=== PATIENT | female | born 1965 | race American Indian/Alaskan Native ===

== ENCOUNTER 2018-02-08 05:55 | Observation (INO) | payer OTHER ==
--- NOTE | 2018-02-07 17:45 | History and Physical Report ---
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 of genital herpes: yes Hx of STD: HSV Active Medications (reviewed today): OXYCODONE-ACETAMINOPHEN 5-325 MG ORAL TABLET (OXYCODONE-ACETAMINOPHEN) 1-2po q6h LEVOTHYROXINE SODIUM 175 MCG ORAL TABLET (LEVOTHYROXINE SODIUM) XARELTO TABLET (RIVAROXABAN TABS) BENADRYL CAPSULE (DIPHENHYDRAMINE HCL CAPS) Current Allergies (reviewed today): No known allergies Past Medical History: Reviewed history from 12/15/2017 and no changes required: Blood Transfusions:2006 post op DVT hand(L) contusion Breast Cancer (DCIS 08/11/2016) Hypothyroidism Past Surgical History: Reviewed history from 12/15/2017 and no changes required: Breast Biopsy:(B) benign D&C: Hysteroscopy: Myomectomy:2005 [facility] 2008 Mastectomy(B) 10/2016 Reconstruction(02/2017) with complications( DVT on lovenox and L breast hematoma) thyroidectomy (2018) Family History Summary: Reviewed history Last on 02/27/2015 and no changes required:02/07/2018 Other family member - Has No Family History of Biliary Tract Cancer - Entered On : 03/04/2016 Other family member - Has No Family History of Breast Cancer - Entered On: 2015 Other family member - Has No Family History of Brain Cancer - Entered On: 2015 Other family member - Has No Family History of DVT/PE on OCP - Entered On: 2015 Other family member - Has No Family History of Kidney/Urinary Tract Cancer - Entered On: 03/04/2016 Other family member - Has No Family History of Ovarvian Cancer - Entered On: 08/2016 Other family member - Has No Family History of Pancreatic Cancer - Entered On: Other family member - Has No Family History of Stomach Cancer - Entered On: 03/04 Other family member - Has No Family History of Small Bowel Cancer - Entered On: 03/04/2016 Other family member - Has No Family History of Uterine Cancer - Entered On: 03/04 Father (biol.) - Has Family History of Prostate Cancer - Entered On: 11/23/2016 Cousin (female) - Has Family History Breast Cancer - paternal - Entered On: 09/26 General Comments - FH: No Family History of Colon Cancer No Family History of Ovarian Cancer Family History of Hypertension sister and mother Social History: Reviewed history from 08/26/2017 and no changes required: has a friend is active Patient is Smoking History: Patient has never smoked. Risk Factors: Mammogram History: Date of Last Mammogram: 02/02/2018 Results: 10/2014 Previous Tobacco Use: Signed On 10/13/2017 Smoked Tobacco Use: Never smoker Smokeless Tobacco Use: Never Passive smoke exposure: no Drug use: no HIV high-risk behavior: no Previous Alcohol Use: Signed On - 10/13/2017 Alcohol use: yes Type: occ Drinks per day: social Exercise: yes Times per week: 5 times per week Type of Exercise: cardio Seatbelt use: 100 % Colonoscopy History: Date of Last Colonoscopy: 10/01/2016 PAP Smear History: Date of Last PAP Smear: 04/29/2011 Mammogram History: Date of Last Mammogram: 02/02/2018 Results: 10/2014 Review of Systems General Denies fever, chills, sweats, anorexia, fatigue, weakness, malaise, weight loss and sleep disorder. Complains of pelvic pain. Denies vaginal discharge, incontinence, dysuria, hematuria, urinary frequency, amenorrhea, menorrhagia, abnormal vaginal bleeding, genital sores, decreased libido, painful periods, painful sex, urinary urgency, hot flashes, vaginal dryness, vaginal itching and vaginal odor. CV Denies chest pains, palpitations, syncope, dyspnea on exertion, orthopnea, PND and peripheral edema. Resp Denies cough, dyspnea at rest, excessive sputum, hemoptysis, wheezing and pleurisy. GI Denies nausea, vomiting, diarrhea, constipation, change in bowel habits, abdominal pain, melena, hematochezia, jaundice, gas/bloating, indigestion/ heartburn, dysphagia and odynophagia. Endo Denies cold intolerance, heat intolerance, polydipsia, polyphagia, polyuria and unusual weight change. Breast Denies left breast lump, right breast lump, nipple discharge, bloody discharge from nipple, breast pain, abnormal mammogram and breast enlargement. MS Denies back pain, joint pain, joint swelling, muscle cramps, muscle weakness, stiffness, arthritis, sciatica, restless legs, leg pain at night and leg pain with exertion. Derm Denies rash, itching, dryness and suspicious lesions. Neuro Denies paralysis, paresthesias, headache, seizures, tremors, vertigo, transient blindness, frequent falls, frequent headaches and difficulty walking. Psych Denies depression, anxiety, irritability and mood swings. Eyes Denies blurring, diplopia, irritation, discharge, vision loss, eye pain and photophobia. ENT Denies earache, ear discharge, tinnitus, decreased hearing, nasal congestion, nosebleeds, sore throat and hoarseness. Allergy Denies urticaria, allergic rash, hay fever and recurrent infections. Heme Denies abnormal bruising, bleeding and enlarged lymph nodes. Physical Exam Appearance: well developed, well nourished, no acute distress Other Exams Lungs: no rales, rhonchi, or wheezes Heart: S1, S2, no murmur, rub, or gallop Abdomen: soft, non-tender, no masses, Genitourinary Exam Vulva: normal, no lesions or discharge Urethral meatus: normal size and location, no lesions or discharge Urethra: no discharge Bladder: no cystocele Vagina: normal appearance, no discharge, lesions. No evidence of cystocele or rectocele. 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 She desires to proceed with BSO and other indicated procedures . Consent reviewed and signed . Possible laparoscopy or laparotomy explained to patient. The risks and alternatives for this surgery were reviewed with the patient. She was informed of possible bleeding, infection, injury to bowel, bladder, ureters or other adjacent organs. The patient was instructed/informed the following: The normal length of hospital stay for this procedure. Nothing to eat or drink after midnight the evening prior to surgery. Clear liquids the day before surgery. Fleets enema the day prior to surgery. Pre-op instruction sheets given. Wound care instructions given. Infection precautions reviewed, patient to call for any signs or symptoms of infection. The usual discomforts associated with this procedure were detailed. Proper use of pain medicines was reviewed. Patient was given ample opportunity to have all her questions answered before signing informed consent. Problem # 2: Pelvic and perineal pain (ICD-789.00) (IKJ77-Q03.2) It was extensively explained to her that her pain may persist, recur or change in nature due to the difficulty with diagnosis chronic pelvic pain or development of adhesions. She declined other treatment options at this time. Problem # 3: DEEP VENOUS THROMBOPHLEBITIS, LEG, LEFT (ICD-453.40) (ICD10- I82.402) Patient states she only requires Xarelto after the procedure. No bridge is required. Medications Added to Medication List This Visit: 1) Oxycodone-acetaminophen 5-325 Mg Oral Tablet (Oxycodone-acetaminophen) .... 1-2po q6h 2) Levothyroxine Sodium 175 Mcg Oral Tablet (Levothyroxine sodium) Prescriptions: OXYCODONE-ACETAMINOPHEN 5-325 MG ORAL TABLET (OXYCODONE-ACETAMINOPHEN) 1-2po q6h #30 Tablet x 0 Entered and Authorized by: Janiya Salas MD Method used: Print then Give to Patient RxID: [id number] Medications and Allergies Allergies Allergy/AdvReac Type Severity Reaction Status Date / Time No Known Allergies Allergy Unverified 02/07/18 16:37 Home Medications Medication Instructions Recorded Confirmed Last Taken Type Levothyroxine [Synthroid] 150 mcg PO QAM 02/07/18 02/07/18 Unknown History Rivaroxaban [Xarelto] 20 mg PO PRN PRN 02/07/18 02/07/18 Unknown History diphenhydrAMINE [Benadryl CAP] 25 mg PO Q8HR PRN 02/07/18 02/07/18 Unknown History Active Meds: Active Medications Cefazolin Sodium (Ancef/Sterile Water 2 Gm/20 Ml) 2 gm in 20 mls @ 80 mls/hr IV PREOP NR; Protocol Assessment and Plan - Patient Problems (1) Pelvic pain Status: Chronic (2) Pelvic mass in female Status: Chronic
[2018-02-08] MEDS ORDERED: ANCEF/STERILE WATER 2 GM/20 ML 2 GM/20 ML SYRINGE IV NR (06:00)
[2018-02-08] MEDS ORDERED: NACL BACTERIOSTATIC INFILTRATI ONE (06:36)
[2018-02-08] MEDS ORDERED: ZOFRAN IV PRN ×2 (07:05→13:10)
[2018-02-08 07:11] LABS: INR 0.97 (0.87-1.13)
[2018-02-08 07:12] LABS: Partial Thromboplastin Time 27.1 Sec. (24.2-36.6)
--- NOTE | 2018-02-08 07:15 | Anesthesia Consultation ---
Anesthesia Consult and Med Hx Date of service: 02/08/18 - Airway Anesthetic Teeth Evaluation: Good ROM Head & Neck: Adequate Mental/Hyoid Distance: Adequate Mallampati Class: Class II Intubation Access Assessment: Good - Pulmonary Exam CTA: Yes - Cardiac Exam Cardiac Exam: RRR - Pre-Operative Health Status ASA Pre-Surgery Classification: ASA3 Proposed Anesthetic Plan: General - Pre-Anesthesia Comment Pre-Anesthesia Comments: 52y with h/o HTN, DVT associated with prior surgery on Xarelto (stopped 2 wks ago), breast CA s/p mastectomy (no chemoradiation), thyroidectomy on Synthroid, who presents for robotic oophorectomy. Recent ED visit to [place] for foot pain (01/23/18)-. neg LE dopplers. WBC 7, hgb 13.4, plt 217. Na 137, K 3.6, Cl 105, Co2 26, BUN 22, Cr 0.97, BG 92. Discharged with suspicion that foot pain related to prior surgeries/injury - Pulmonary Hx Smoking: No Hx Asthma: No SOB: No COPD: No - Cardiovascular System Hx Hypertension: Yes Hx Coronary Artery Disease: No Hx Angina: No - Central Nervous System Hx Seizures: No CVA: No Hx Psychiatric Problems: No - Gastrointestinal Hx Gastroesophageal Reflux Disease: No - Endocrine Hx Renal Disease: No Hx Insulin Dependent Diabetes: No Hx Non-Insulin Dependent Diabetes: No Hx Thyroid Disease: Yes Hx Hypothyroidism: Yes (s/p thyroidectomy) - Other Systems Hx Alcohol Use: Yes (occas) Hx Cancer: Yes (Breast) - Additional Comments Anesthesia Medical History Comments: No prev anes comlpications
--- NOTE | 2018-02-08 07:17 | Anesthesia Day of Surgery ---
Anesthesia Day of Surgery - Day of Surgery Patient Examined: Yes Patient H&P Reviewed: Yes Patient is NPO: Yes Beta Blockers: No Cardiac Clearance: Yes Pulmonary Clearance: Yes Baltazar's Test: N/A
[2018-02-08] MEDS ORDERED: DIPRIVAN 10 MG/ML IV ONE (07:37)
[2018-02-08] MEDS ORDERED: DILAUDID ONE ×2 (07:38→12:03)
[2018-02-08] MEDS ORDERED: ZEMURON IV ONE (07:38)
[2018-02-08] MEDS ORDERED: XYLOCAINE MPF 2% ONE (07:38)
[2018-02-08] MEDS ORDERED: VERSED IV NR (08:00)
[2018-02-08] MEDS ORDERED: LACTATED RINGERS 1,000 ML IV SCH (08:00)
[2018-02-08] MEDS ORDERED: MARCAINE 0.5% 30 ML INFILTRATI ONE (08:19)
[2018-02-08] MEDS ORDERED: ROBINUL ONE (08:40)
[2018-02-08] MEDS ORDERED: ZOFRAN ONE (09:32)
--- NOTE | 2018-02-08 09:35 | Anesthesia Day of Surgery ---
Anesthesia Day of Surgery - Day of Surgery Patient Examined: Yes Patient H&P Reviewed: Yes Patient is NPO: Yes
[2018-02-08] MEDS ORDERED: LACTATED RINGERS 1,000 ML ONE ×2 (09:40→12:24)
[2018-02-08] MEDS ORDERED: NEO SYNEPHRINE/NS Syringe(OR USE) IV ONE (09:53)
[2018-02-08] MEDS ORDERED: KENALOG-40 ONE (10:45)
[2018-02-08] MEDS ORDERED: MARCAINE 0.5% INFILTRATI ONE (11:01)
[2018-02-08] MEDS ORDERED: KENALOG-40 IM ONE (11:01)
[2018-02-08] MEDS ORDERED: NACL 0.9% IR ONE (11:01)
[2018-02-08] MEDS: DILAUDID IV PRN ×4 (11:38→12:13)
--- NOTE | 2018-02-08 11:52 | Post Operative Note ---
Pre-op diagnosis: pelvic pain, pelvic mass Post-op diagnosis: same Procedure: robot assisted lsc (B) oophorectomy with removal of cystic pelvic mass Anesthesia: VELMA Surgeon: ELEANOR RENEE Garment Supervisor: DUKE COPELAND Estimated blood loss: minimal Condition: stable Disposition: PACU
--- NOTE | 2018-02-08 12:14 | Post Anesthesia Evaluation ---
- Post Anesthesia Evaluation Patient Participated: Yes Airway Patent: Yes Stable Respiratory Function: Yes Nausea/Vomiting: No Temp > 96.8F: Yes Pain Manageable: Yes Adequeate Hydration: Yes Anesthesia Complications: No
[2018-02-08] MEDS ORDERED: TYLENOL PO PRN (13:10)
[2018-02-08] MEDS ORDERED: ANCEF/NS 1 GM/50 ML 1 GM/50 ML BAG IV SCH (13:10)
[2018-02-08] MEDS ORDERED: NACL 0.9% 1000 ML 1,000 ML IV SCH (13:10)
[2018-02-08] MEDS ORDERED: REGLAN PO PRN (13:10)
[2018-02-08] MEDS ORDERED: TYLENOL PR PRN (13:10)
[2018-02-08] MEDS ORDERED: NARCAN 0.4 MG/1 ML IV PRN (13:10)
[2018-02-08] MEDS ORDERED: PERCOCET 5/325 PO PRN (13:10)
[2018-02-08] MEDS: REGLAN IV PRN ×2 (15:27→21:55)
[2018-02-08] MEDS: MORPHINE IV PRN (15:50)
--- NOTE | 2018-02-08 16:31 | Operative Report ---
Operative Report Operative Report: Date: 02/08/2018 Preoperative diagnosis: 1. Pelvic pain 2. Large cystic pelvic mass 3. History of breast cancer 4. History of postoperative deep venous thrombosis 5. Hypothyroidism Postoperative diagnosis: 1. Pelvic pain 2. Large cystic pelvic mass 3. History of breast cancer 4. History of postoperative deep venous thrombosis 5. Hypothyroidism 6. Extensive pelvic adhesions Procedure: 1. Robotic-assisted laparoscopic bilateral oophorectomy 2. Excision of right cystic pelvic mass, probable benign hydrosalpinx 3. Lysis of adhesions Surgeon: Janiya Salas MD Remediation Technician: Ana Luisa Vazquez M.D. Anesthesiologist: Sandy Park M.D. Anesthesia: Gen. endotracheal anesthesia EBL: Minimal Findings: Grossly normal left ovary. No left fallopian tube was identified. Right cystic pelvic mass encompassing the right ovary. Extensive abdominal pelvic adhesions. No obvious evidence of a malignant process. Procedure: Patient was taken to the OR and placed in the supine position. General anesthesia was induced and an oral gastric tube was placed. Her neck and head were placed on foam support. Foam eye protection with goggles were secured in place. Then foam face protection was placed and secured. Foam shoulder pads were then positioned on her shoulders for Trendelenburg positioning. She was then placed in dorsolithotomy position. Exam under anesthesia unremarkable. The abdomen and vagina were then prepped and draped in the usual sterile fashion. Timeout was performed. A Park catheter was inserted into the bladder with drainage of clear yellow urine. Sponge stick was introduced into the vagina. Sterile gloves were placed attention was turned to the abdomen. A 10 mm vertical supraumbilical incision was made approximately 8cm superior to the umbilicus. A 12 mm trocar with the laparoscope and camera attached was introduced through this incision under direct visualization. The abdomen was insufflated. No obvious bowel, bladder, ureteral, or major vascular injury was noted. The patient was then placed in steep Trendelenburg position and the following trochars were placed under direct visualization: 8 mm robotic trochars were placed through incisions made in the bilateral midclavicular lower abdominal region approximately 10 cm lateral and approximately 2 cm below the midline incision, and a 10mm trocar was placed through an incision made in the right lower lateral pelvis approximately 2 cm superior to the iliac crest. The 10 mm laparoscope was then replaced by a 5 mm laparoscope that was placed through the 5 millimeter lateral trocar. The 12 mm trocar was then removed in the James Jackson fascial closure device was placed through the incision and a 0 Vicryl was placed through the fascia. Once the suture was secured the 12 mm trocar was reintroduced. The same procedure was performed for the right lower quadrant incision. Using the Endo Zach and 30 W of energy the omentum that was adhered to the anterior abdominal wall was released. These adhesions extended down into the pelvis we are a candidate for released from the anterior wall and the vaginal cuff. Once anatomy was restored and the trochars were in the appropriate positions, the Netsket Roddy robot system was engaged. The EndoShears and bipolar device were placed through the 8 mm trochars and positioned then attention was turned to the console. No bowel, bladder, ureteral, or major vessel injury was noted. The right adnexal structure was elevated infundibular pelvic ligament was clamped cauterized and incised. With careful dissection the cystic structure was released away from the pelvic sidewall. The course of the ureter did not appear to be involved with dissection. Attention was then turned to the to the left adnexa. Grossly normal left ovary was elevated away from the pelvic sidewall to ensure no injury to the ureter. Then the infundibulopelvic ligament was clamped, cauterized and incised and released. Again the ureter did not appear involved with the dissection. The left ovary was then placed in an Endo Catch bag and removed through the right lower quadrant incision. The trocar was reintroduced. Then the cystic structure was placed in a different Endo Catch bag and then approximately 100 mL's of clear fluid was aspirated. The bagwas then closed and the structure was removed through the right lower quadrant incision. The trocar was again reintroduced to the right lower quadrant incision. Pelvis was irrigated with warm saline. Then attention was turned to the pelvic sidewall. Hemostasis was noted. Surgicel was applied to the pelvic side butcher and vaginal cuff. Grossly normal appendix was noted. Once hemostasis was confirmed and no obvious injuries were visualized procedure was ended. The robot was disengaged. The patient was taken out of Trendelenburg position. The 10 mm trochars were removed and the fascia was ligated. The abdomen was then desufflated. The skin incisions were reapproximated using 0 Vicryl in a subcuticular manner. There within infused with 3 mL's of Kenalog 40 mg. Also the incisions were infused with 20 mL of Marcaine 0.5% without epinephrine. Hemostasis was noted. She was noted to have clear yellow urine draining into her Park catheter that was removed at the end of the procedure. At this point the procedure was ended Counts were correct 3 patient tolerated procedure well was taken to recovery in stable condition
[2018-02-08] MEDS: ceFAZolin 1 GM in NACL 0.9% 20 ML IV SCH ×2 (16:40→23:05)
[2018-02-08] MEDS ORDERED: DILAUDID PO PRN (17:41)
--- NOTE | 2018-02-08 17:55 | Event Note ---
Date: 02/08/18 Patient resting in bed, feels a little nausea and groggy. States she cannot tolerated Percocet and requests PO Dilaudid. Her sister is present at the bed side. Patient states she's already voided w/o difficulty. Operative findings and procedure explained, questions answered. Will observe over night d/t extensive dissection performed and her complicated history. Patient voiced understanding and agrees with plan of care.
[2018-02-08 19:16] LABS: BUN/Creatinine Ratio TNR; Blood Urea Nitrogen TNR mg/dL (7-17)
[2018-02-08 19:17] LABS: Calcium TNR mg/dL (8.4-10.2); Hemolysis Index TNR
[2018-02-08 20:35] LABS: BUN/Creatinine Ratio 13; Blood Urea Nitrogen 9 mg/dL (7-17); Hemolysis Index 2
[2018-02-08] MEDS: DILAUDID PO PRN (20:47)
[2018-02-08] MEDS ORDERED: MYLICON PO PRN (23:00)
[2018-02-09] MEDS: MORPHINE IV PRN ×2 (02:33→09:18)
[2018-02-09 04:51] LABS: Hemoglobin 12.8 gm/dl (10.1-14.3)
[2018-02-09] MEDS ORDERED: SYNTHROID PO SCH (06:00)
[2018-02-09] MEDS: DILAUDID PO PRN (06:49)
--- NOTE | 2018-02-09 08:10 | Progress Note ---
Assessment and Plan - Patient Problems (1) S/P bilateral salpingo-oophorectomy Current Visit: Yes Status: Acute (2) Pelvic pain Current Visit: No Status: Chronic (3) Pelvic mass in female Current Visit: No Status: Chronic (4) History of DVT (deep vein thrombosis) Current Visit: Yes Status: Chronic (5) Hypothyroidism Current Visit: Yes Status: Acute (6) History of breast cancer Current Visit: Yes Status: Acute (7) Shoulder pain, left Current Visit: Yes Status: Acute Qualifiers: Chronicity: acute Qualified Code(s): M25.512 - Pain in left shoulder Plan to address problem: Probably trapped gas after surgery, no SOB or typical symptoms of [place]; with h/o DVT with proceed with CT scan for PE. Plan of care discussed with patient and her fiance, she voiced understanding and agrees with care plan Subjective - Subjective Date of service: 02/09/18 Principal diagnosis: POPD#1 s/p BSO Interval history: Patient complained on Left chest pain last pm. Somewhat releived with Mylicon. Had pain throughout the night better this am after MSO4 and po Dilaudid. She denies SOB, cough. Patient reports: appetite normal, voiding normally, pain well controlled Objective - Vital Signs Latest vital signs: Vital Signs Temp Pulse Resp BP Pulse Ox 02/09/18 06:13 98.1 F 85 20 133/74 98 02/09/18 02:10 98.9 F 94 H 20 121/72 99 02/08/18 20:51 97.8 F 96 H 20 148/85 99 02/08/18 16:08 98.3 F 86 18 140/73 100 02/08/18 15:50 16 02/08/18 12:50 97.7 F 88 12 100 02/08/18 12:30 97.3 F L 100 H 12 144/73 100 02/08/18 12:13 12 02/08/18 12:01 12 02/08/18 12:00 80 10 L 136/72 100 02/08/18 11:49 14 02/08/18 11:45 82 12 138/71 100 02/08/18 11:38 14 02/08/18 11:30 75 13 129/68 100 02/08/18 11:25 76 16 131/69 100 02/08/18 11:20 77 15 132/71 100 02/08/18 11:15 97.9 F 80 14 133/67 100 Intake and Output 02/08/18 02/09/18 02/09/18 22:59 06:59 14:59 Intake Total 1000 Output Total 500 600 Balance -500 1000 -600 Intake: IV 1000 Lactated Ringers 1,000 ml 1000 @ 100 mls/hr IV DIRECT JAYLIN Rx#:[id number] Output: Urine 500 600 Void 500 600 Other: Intake, Other Source Saline Solution Total, Output Amount 500 600 Voiding Method Toilet # Voids Void 3 1 # Bowel Movements 0 - Exam Cardiovascular: Present: Regular rate Lungs: Present: Clear to auscultation, Normal air movement Abdomen: Present: normal appearance, soft, normal bowel sounds. Absent: distention, guarding Extremities: Present: normal. Absent: tenderness, edema Incision: Present: normal, dry, intact - Labs Labs: Abnormal lab results 02/08/18 Range/Units 19:41 Glucose 143 H (65-100) mg/dL Calcium 8.0 L (8.4-10.2) mg/dL
[2018-02-09] MEDS ORDERED: NACL ONE (09:42)
--- NOTE | 2018-02-09 10:35 | Cat Scan Report ---
CTA CHEST: HISTORY: Evaluate for pulmonary embolus, chest pain. COMPARISON: none. TECHNIQUE: Helical CT in 1.25mm intervals following IV contrast. Pulmonary embolus protocol. Sagittal and coronal reformatted images. Rotational MIP images. FINDINGS: Comment: There is a large amount of free air in the upper abdomen. I talked to the patient's nurse who informed me the patient underwent recent hysterectomy. The free air appears to be secondary to surgery and not bowel perforation with a given history. Contrast bolus is satisfactory. No pulmonary embolus is identified. Thyroid gland: Normal. Tracheobronchial tree: Normal. Esophagus: Normal. Heart: Normal. Pericardium: Normal. Mediastinum: Normal. Lung Carranza: There are mild subpleural atelectatic changes at the right lung base. Otherwise, the lungs are clear. No parenchymal disease, mass or infiltrate is identified. Pleural Spaces: Normal. Musculoskeletal: Normal. IMPRESSION: No evidence for pulmonary embolus. Minor atelectatic changes at the right lung base, otherwise, unremarkable CTA chest. Free air in the upper abdomen which is presumably secondary to recent surgery.
[2018-02-09 14:24] VITALS: BP 143/85
[2018-02-09] MEDS ORDERED: LOVENOX SUB-Q SCH (23:00)
== END 2018-02-09 11:55 | disposition home or self-care (01) ==
LOC: OR 05:55 → OB 11:44
PROVIDERS: ADMIT Obstetrics & Gynecology; ATTEND Obstetrics & Gynecology
DX: R10.2 Pelvic and perineal pain (principal); R19.07 Generalized intra-abdominal and pelvic swelling, mass and lump; N73.6 Female pelvic peritoneal adhesions (postinfective); I10 Essential (primary) hypertension; E89.0 Postprocedural hypothyroidism; M25.512 Pain in left shoulder; Z85.3 Personal history of malignant neoplasm of breast; Z86.718 Personal history of other venous thrombosis and embolism
CPT/HCPCS: 36415; 58661; 58662; 71275; 80048; 85014; 85018; 85610; 85730; 86850; 86900; 86901; 88305; 96374; 96375; 96376; A4217; G0378; J0690; J1170; J2250; J2270; J2370; J2405; J2704; J2765; J3301; J7120; Q9967; S2900